=== PATIENT | female | born 1935 | race Caucasian/White ===

== ENCOUNTER → 2017-08-24 | Outpatient (CLI) | payer MEDICARE, BC ==
--- NOTE | 2017-08-28 10:14 | MM ---
Reason for exam: screening (asymptomatic). History: Patient is postmenopausal. Cyst aspiration of the left breast, 1996. Taking estrogen. Physical Findings: A clinical breast exam by your physician is recommended on an annual basis and results should be correlated with mammographic findings. MG Screening Mammo w CAD Bilateral CC and MLO view(s) were taken. The breast tissue is heterogeneously dense. This may lower the sensitivity of mammography. There is no discrete abnormality. No significant changes when compared with prior studies. ASSESSMENT: Negative, BI-RAD 1 RECOMMENDATION: Routine screening mammogram of both breasts in 1 year.
== END | disposition home or self-care (01) ==
LOC: RADMAMWWP 12:52
PROVIDERS: ATTEND Family Medicine
DX: Z12.31 Encounter for screening mammogram for malignant neoplasm of breast (principal)

== ENCOUNTER → 2018-09-06 | Outpatient (CLI) | payer MEDICARE, BC ==
--- NOTE | 2018-09-10 08:47 | MM ---
Reason for exam: screening (asymptomatic). Last mammogram was performed 1 year ago. History: Patient is postmenopausal. Cyst aspiration of the left breast, 1996. Taking estrogen. Physical Findings: A clinical breast exam by your physician is recommended on an annual basis and results should be correlated with mammographic findings. MG Screening Mammo w CAD Bilateral CC and MLO view(s) were taken. Prior study comparison: August 24, 2017, bilateral MG screening mammo w CAD. The breast tissue is heterogeneously dense. This may lower the sensitivity of mammography. No suspicious abnormality. No significant changes when compared with prior studies. ASSESSMENT: Negative, BI-RAD 1 RECOMMENDATION: Routine screening mammogram of both breasts in 1 year.
== END | disposition home or self-care (01) ==
LOC: RADMAMWWP 10:26
PROVIDERS: ATTEND Family Medicine
DX: Z12.31 Encounter for screening mammogram for malignant neoplasm of breast (principal)
CPT/HCPCS: 77067

== ENCOUNTER → 2019-09-26 | Outpatient (CLI) | payer MEDICARE, BC ==
--- NOTE | 2019-09-30 10:38 | MM ---
Reason for exam: screening (asymptomatic). Last mammogram was performed 1 year and 1 month ago. History: Patient is postmenopausal. Cyst aspiration of the left breast, 1996. Taking estrogen. Physical Findings: A clinical breast exam by your physician is recommended on an annual basis and results should be correlated with mammographic findings. MG Screening Mammo w CAD Bilateral CC and MLO view(s) were taken. Prior study comparison: September 06, 2018, bilateral MG screening mammo w CAD. August 24, 2017, bilateral MG screening mammo w CAD. The breast tissue is heterogeneously dense. This may lower the sensitivity of mammography. Medial asymmetric density left CC view more defined. ASSESSMENT: Incomplete: need additional imaging evaluation, BI-RAD 0 RECOMMENDATION: Special view mammogram of the left breast. (3D) If lesion persists on supplemental views, image directed ultrasound is recommended. [facility] will attempt to contact patient to return for supplemental views and ultrasound if indicated.
== END | disposition home or self-care (01) ==
LOC: RADMAMWWP 14:27
PROVIDERS: ATTEND Family Medicine
DX: Z12.31 Encounter for screening mammogram for malignant neoplasm of breast (principal)
CPT/HCPCS: 77067

== ENCOUNTER → 2019-10-15 | Outpatient (CLI) | payer MEDICARE, BC ==
--- NOTE | 2019-10-15 10:29 | MM ---
Reason for exam: additional evaluation requested from abnormal screening. Last mammogram was performed 1 month ago. History: Patient is postmenopausal. Cyst aspiration of the left breast, 1996. Took estrogen for 20 years. Physical Findings: Nurse did not find any significant physical abnormalities on exam. MG 3D Work Up W/Cad LT Spot compression CC, ML, and CCRM view(s) were taken of the left breast. Prior study comparison: September 26, 2019, bilateral MG screening mammo w CAD. September 06, 2018, bilateral MG screening mammo w CAD. Area of concern is less conspicuous. Ultrasound is recommended. These results were verbally communicated with the patient and result sheet given to the patient on 10/15/19. ASSESSMENT: Incomplete: need additional imaging evaluation, BI-RAD 0 RECOMMENDATION: Ultrasound of the left breast.
--- NOTE | 2019-10-15 10:30 | USB ---
Reason for exam: additional evaluation requested from abnormal screening. History: Patient is postmenopausal. Cyst aspiration of the left breast, 1996. Took estrogen for 20 years. US Breast Workup Limited LT Left limited breast ultrasound including focal area of concern, retroareolar and axilla demonstrates a 0.4 x 0.4 x 0.3cm lesion too small to characterize at 12 o'clock. These results were verbally communicated with the patient and result sheet given to the patient on 10/15/19. ASSESSMENT: Probably benign, BI-RAD 3 RECOMMENDATION: Follow-up diagnostic mammogram and ultrasound of the left breast in 6 months.
== END | disposition home or self-care (01) ==
LOC: RADMAMWWP 08:41
PROVIDERS: ATTEND Family Medicine
DX: R92.8 Other abnormal and inconclusive findings on diagnostic imaging of breast (principal)
CPT/HCPCS: 77065; 76642; G0279; 77061

== ENCOUNTER → 2020-11-04 | Outpatient (CLI) | payer MEDICARE ==
--- NOTE | 2020-11-04 13:44 | MM ---
Reason for exam: screening (asymptomatic). Last mammogram was performed 4 months ago. History: Patient is postmenopausal and history of other cancer. Cyst aspiration of the left breast, 1996. Took estrogen for 20 years. Physical Findings: A clinical breast exam by your physician is recommended on an annual basis and results should be correlated with mammographic findings. MG 3D Screening Mammo W/Cad Bilateral CC and MLO view(s) were taken. Prior study comparison: July 16, 2020, left breast MG 3d diag mammo w/cad LT. October 15, 2019, left breast MG 3d work up w/cad LT. The breast tissue is heterogeneously dense. This may lower the sensitivity of mammography. There are benign appearing vascular calcifications bilaterally. There is no discrete abnormality. ASSESSMENT: Incomplete: need additional imaging evaluation, BI-RAD 0 RECOMMENDATION: Ultrasound of the left breast. (subareolar, patient symptoms of new inverted nipple) [facility] will attempt to contact patient to return for ultrasound.
== END | disposition home or self-care (01) ==
LOC: RADMAMWWP 08:27
PROVIDERS: ATTEND Family Medicine
DX: Z12.31 Encounter for screening mammogram for malignant neoplasm of breast (principal)
CPT/HCPCS: 77063; 77067

== ENCOUNTER → 2020-11-09 | Outpatient (CLI) | payer MEDICARE ==
--- NOTE | 2020-11-09 10:38 | USB ---
Reason for exam: additional evaluation requested from abnormal screening. History: Patient is postmenopausal and history of other cancer. Cyst aspiration of the left breast, 1996. Took estrogen for 20 years. Physical Findings: Nurse did not find any significant physical abnormalities on exam. US Breast Workup Limited LT Left limited breast ultrasound including focal area of concern, retroareolar and axilla demonstrates no cystic or solid lesion seen. These results were verbally communicated with the patient and result sheet given to the patient on 11/09/20. ASSESSMENT: Benign, BI-RAD 2 RECOMMENDATION: Return to routine screening mammogram schedule for both breasts. Manage patient on a clinical basis.
== END | disposition home or self-care (01) ==
LOC: RADUSWWP 09:18
PROVIDERS: ATTEND Family Medicine
DX: R92.8 Other abnormal and inconclusive findings on diagnostic imaging of breast (principal)

== ENCOUNTER 2021-05-18 11:37 | Inpatient (IN) | payer MEDICARE ==
--- NOTE | 2021-05-18 12:25 | XR ---
EXAMINATION TYPE: XR chest 2V DATE OF EXAM: 05/18/2021 COMPARISON: NONE HISTORY: Shortness of breath TECHNIQUE: Frontal and lateral views of the chest are obtained. FINDINGS: Scattered senescent parenchymal changes noted. Hyperinflation compatible with COPD. Strandy left lower lobe density may reflect atelectasis or developing infiltrate. Correlate clinicall y. Heart size is stable. Mediastinal structures are stable and grossly unremarkable. No evidence for hilar prominence. Degenerative changes dorsal spine. IMPRESSION: 1. Strandy left lower lobe density may reflect atelectasis or developing infiltrate. Correlate clinic ally.
[2021-05-18 12:27] LABS: Basophils % (A) 0 %; Eosinophils % (A) 8 %; HGB 12.7 gm/dL (11.4-16.0); Lymphocytes % (A) 7 %; MCH 29.3 pg (25.0-35.0); MCHC 33.3 g/dL (31.0-37.0); MCV 87.9 fL (80.0-100.0); Monocytes # (A) 0.6 k/uL (0-1.0); Monocytes % (A) 4 %; Neutrophils # (A) 10.6 k/uL (1.3-7.7); Neutrophils % (A) 79 %; Platelet Count 285 k/uL (150-450); RBC 4.32 m/uL (3.80-5.40); WBC 13.3 k/uL (3.8-10.6)
[2021-05-18 12:35] LABS: INR 0.9 (<1.2); Partial Thromboplastin Time 22.6 sec (22.0-30.0); Prothrombin Time 10.1 sec (9.0-12.0)
[2021-05-18 12:37] LABS: Albumin 3.9 g/dL (3.5-5.0); Calcium 9.9 mg/dL (8.4-10.2); Magnesium 2.1 mg/dL (1.6-2.3); Potassium 4.5 mmol/L (3.5-5.1); Total Bilirubin 0.5 mg/dL (0.2-1.3); Total Protein 6.4 g/dL (6.3-8.2)
[2021-05-18] MEDS ORDERED: SODIUM CHLORIDE 0.9% 500 ML 500 ML IV ONE (12:44)
--- NOTE | 2021-05-18 12:48 | ED ---
General Adult HPI - General Chief complaint: Arrhythmia/Palpitations Stated complaint: Arrhythmia Time Seen by Provider: 05/18/21 11:49 Source: patient, EMS, RN notes reviewed, old records reviewed Mode of arrival: EMS - History of Present Illness Initial comments: 86-year-old female presenting with palpitations, new onset atrial fibrillation. She was found to be in A. fib at her primary care office and sent to the emergency department for evaluation. She has had some exertional dyspnea and fatigue over the past several weeks. She's had some nausea without significant vomiting. No central chest pain. No fever. No diarrhea. - Related Data Home Medications Medication Instructions Recorded Confirmed Atenolol [Tenormin] 50 mg PO DAILY 05/18/21 05/18/21 Irbesartan [Avapro] 150 mg PO DAILY 05/18/21 05/18/21 Levothyroxine Sodium [Synthroid] 50 mcg PO DAILY 05/18/21 05/18/21 Raloxifene [Evista] 60 mg PO DAILY 05/18/21 05/18/21 Allergies Allergy/AdvReac Type Severity Reaction Status Date / Time Iodinated Contrast Media Allergy Unknown Verified 10/15/19 09:29 Review of Systems ROS Statement: Those systems with pertinent positive or pertinent negative responses have been documented in the HPI. ROS Other: All systems not noted in ROS Statement are negative. Past Medical History Past Medical History: Hypertension History of Any Multi-Drug Resistant Organisms: None Reported Past Surgical History: Cholecystectomy Additional Past Surgical History / Comment(s): Cholecystectomy 1990 Smoking Status: Never smoker Past Alcohol Use History: None Reported Past Drug Use History: None Reported General Exam General appearance: alert, in no apparent distress Head exam: Present: atraumatic, normocephalic Eye exam: Present: normal appearance, PERRL ENT exam: Present: normal exam Neck exam: Present: normal inspection. Absent: tenderness, meningismus Respiratory exam: Present: normal lung sounds bilaterally. Absent: respiratory distress, wheezes Cardiovascular Exam: Present: tachycardia, irregular rhythm GI/Abdominal exam: Present: soft. Absent: distended, tenderness, guarding Extremities exam: Present: normal inspection, normal capillary refill. Absent: pedal edema, calf tenderness Neurological exam: Present: alert, oriented X3, CN II-XII intact. Absent: motor sensory deficit Psychiatric exam: Present: normal affect, normal mood Skin exam: Present: warm, dry, intact. Absent: cyanosis, diaphoretic Course Vital Signs 05/18/21 05/18/21 05/18/21 11:39 11:56 13:06 Temperature 98.7 F 102 F H Pulse Rate 93 Respiratory 18 Rate Blood Pressure 124/87 O2 Sat by Pulse 100 Oximetry EKG Findings - EKG Comments: EKG Findings:: EKG: Atrial flutter with variable AV block, rate of 93, QRS duration 84, QTC 450, no ST segment elevation. Medical Decision Making - Medical Decision Making 86-year-old female presents with palpitations. Patient is noted to be in atrial flutter with variable AV block, rate typically around 70 bpm. While in the emergency department she does convert into her rapid narrow complex rhythm which was not able to be captured on EKG was suggestive of any trauma fluttering with 2-1 conduction versus SVT. She was started on Cardizem. She will be admitted with cardiology on consultation. Case discussed with Dr. Montalvo who will admit. - Lab Data Result diagrams: 05/18/21 11:58 05/18/21 11:58 Lab Results 05/18/21 05/18/21 05/18/21 Range/Units 11:58 11:58 11:58 WBC 13.3 H (3.8-10.6) k/uL RBC 4.32 (3.80-5.40) m/uL Hgb 12.7 (11.4-16.0) gm/dL Hct 38.0 (34.0-46.0) % MCV 87.9 (80.0-100.0) fL MCH 29.3 (25.0-35.0) pg MCHC 33.3 (31.0-37.0) g/dL RDW 13.0 (11.5-15.5) % Plt Count 285 (150-450) k/uL MPV 7.0 Neutrophils % 79 % Lymphocytes % 7 % Monocytes % 4 % Eosinophils % 8 % Basophils % 0 % Neutrophils # 10.6 H (1.3-7.7) k/uL Lymphocytes # 1.0 (1.0-4.8) k/uL Monocytes # 0.6 (0-1.0) k/uL Eosinophils # 1.0 H (0-0.7) k/uL Basophils # 0.0 (0-0.2) k/uL PT 10.1 (9.0-12.0) sec INR 0.9 (<1.2) APTT 22.6 (22.0-30.0) sec Sodium 133 L (137-145) mmol/L Potassium 4.5 (3.5-5.1) mmol/L Chloride 98 (98-107) mmol/L Carbon Dioxide 27 (22-30) mmol/L Anion Gap 8 mmol/L BUN 28 H (7-17) mg/dL Creatinine 1.08 H (0.52-1.04) mg/dL Est GFR (CKD-EPI)AfAm 54 (>60 ml/min/1.73 sqM) Est GFR (CKD-EPI)NonAf 47 (>60 ml/min/1.73 sqM) Glucose 138 H (74-99) mg/dL Calcium 9.9 (8.4-10.2) mg/dL Magnesium 2.1 (1.6-2.3) mg/dL Total Bilirubin 0.5 (0.2-1.3) mg/dL AST 27 (14-36) U/L ALT 22 (4-34) U/L Alkaline Phosphatase 82 (38-126) U/L Troponin I (0.000-0.034) ng/mL Total Protein 6.4 (6.3-8.2) g/dL Albumin 3.9 (3.5-5.0) g/dL 05/18/21 Range/Units 11:58 WBC (3.8-10.6) k/uL RBC (3.80-5.40) m/uL Hgb (11.4-16.0) gm/dL Hct (34.0-46.0) % MCV (80.0-100.0) fL MCH (25.0-35.0) pg MCHC (31.0-37.0) g/dL RDW (11.5-15.5) % Plt Count (150-450) k/uL MPV Neutrophils % % Lymphocytes % % Monocytes % % Eosinophils % % Basophils % % Neutrophils # (1.3-7.7) k/uL Lymphocytes # (1.0-4.8) k/uL Monocytes # (0-1.0) k/uL Eosinophils # (0-0.7) k/uL Basophils # (0-0.2) k/uL PT (9.0-12.0) sec INR (<1.2) APTT (22.0-30.0) sec Sodium (137-145) mmol/L Potassium (3.5-5.1) mmol/L Chloride (98-107) mmol/L Carbon Dioxide (22-30) mmol/L Anion Gap mmol/L BUN (7-17) mg/dL Creatinine (0.52-1.04) mg/dL Est GFR (CKD-EPI)AfAm (>60 ml/min/1.73 sqM) Est GFR (CKD-EPI)NonAf (>60 ml/min/1.73 sqM) Glucose (74-99) mg/dL Calcium (8.4-10.2) mg/dL Magnesium (1.6-2.3) mg/dL Total Bilirubin (0.2-1.3) mg/dL AST (14-36) U/L ALT (4-34) U/L Alkaline Phosphatase (38-126) U/L Troponin I <0.012 (0.000-0.034) ng/mL Total Protein (6.3-8.2) g/dL Albumin (3.5-5.0) g/dL Disposition Clinical Impression: Atrial flutter with rapid ventricular response Disposition: ADMITTED IP TO THIS HOSP Condition: Stable Is patient prescribed a controlled substance at d/c from ED?: No Referrals: Les Lombardo MD [Primary Care Provider] - 1-2 days Decision to Admit Reason: Admit from EC Decision Date: 05/18/21 Decision Time: 14:19
[2021-05-18] MEDS: SODIUM CHLORIDE 0.9% 1,000 ML IV SCH (13:13)
[2021-05-18] MEDS ORDERED: DILTIAZEM 125 MG in SODIUM CHLORIDE 0.9% 100 ML IV SCH (13:30)
[2021-05-18] MEDS ORDERED: HEPARIN SODIUM 1,000 UN/ML (10ML VL) IV PRN (14:02)
[2021-05-18] MEDS ORDERED: HEPARIN SODIUM 1,000 UN/ML (10ML VL) IV ONE (14:02)
[2021-05-18] MEDS ORDERED: NALOXONE 0.4 MG/ML 1 ML VIAL IV PRN (14:03)
[2021-05-18] MEDS ORDERED: ACETAMINOPHEN TAB 325 MG TAB PO PRN (14:03)
[2021-05-18] MEDS ORDERED: HEPARIN SOD,PORK IN 0.45% NACL 25,000 UNIT in 0.45% NACL 1 250ML.BAG IV SCH (14:15)
[2021-05-18] MEDS ORDERED: guaiFENesin SYRUP 100MG/5ML 200 MG/10 ML CUP PO PRN (16:24)
--- NOTE | 2021-05-18 16:35 | P.HPIM ---
History of Present Illness H&P Date: 05/18/21 Chief Complaint: Cough This is a 86-year-old female with past medical history significant for hypertension and hyperlipidemia that presented as directed by her PCP for abnormal heart rhythm. Patient said that she has been having a dry cough for the past few days and went to her PCP today for evaluation. She denies any fevers or chills. Cough is dry and nonproductive. No shortness of breath. Patient was evaluated with PCP and was noted to be tachycardic with a regular heart rhythm. She was sent to the ER for further evaluation of A. fib with RVR. Patient denies any history of arrhythmia or any cardiac history for that matter. She is fairly active and does not have any difficulty usually. Chest x-ray in the ER showed a left lower lobe infiltrate concerning for pneumonia. Patient is not hypoxic. She was started on IV Cardizem drip in the ER and her heart rate was in the 70s and 80s at the time of my evaluation. Review of Systems Review of system: 14 points review of systems were obtained and were negative except to what were mentioned in the HPI. Past Medical History Past Medical History: Hypertension History of Any Multi-Drug Resistant Organisms: None Reported Past Surgical History: Cholecystectomy Additional Past Surgical History / Comment(s): Cholecystectomy 1990 Smoking Status: Never smoker Past Alcohol Use History: None Reported Past Drug Use History: None Reported Medications and Allergies Home Medications Medication Instructions Recorded Confirmed Type Atenolol [Tenormin] 50 mg PO DAILY 05/18/21 05/18/21 History Irbesartan [Avapro] 150 mg PO DAILY 05/18/21 05/18/21 History Levothyroxine Sodium [Synthroid] 50 mcg PO DAILY 05/18/21 05/18/21 History Raloxifene [Evista] 60 mg PO DAILY 05/18/21 05/18/21 History Allergies Allergy/AdvReac Type Severity Reaction Status Date / Time Iodinated Contrast Media Allergy Unknown Verified 10/15/19 09:29 Physical Exam Vitals: Vital Signs Temp Pulse Resp BP Pulse Ox 05/18/21 14:08 93 18 101/86 96 05/18/21 13:06 102 F H 05/18/21 11:56 93 05/18/21 11:39 98.7 F 18 124/87 100 Intake and Output 05/18/21 05/18/21 05/18/21 06:59 14:59 22:59 Other: Weight 57.153 kg General: The patient is awake and alert, in no distress Eye: there is normal conjunctiva bilaterally. Neck: The neck is supple, there is no JVD. Cardiovascular: Irregular. Normal S1-S2, no S3-S4, no murmurs. Respiratory: Lungs clear to auscultation bilaterally Gastrointestinal: Abdomen is soft, nontender Musculoskeletal: There is no pedal edema. Neurological:. Speech is normal. Skin: Skin is warm and dry Results CBC & Chem 7: 05/18/21 11:58 05/18/21 11:58 Labs: Abnormal Lab Results - Last 24 Hours (Table) 05/18/21 05/18/21 Range/Units 11:58 11:58 WBC 13.3 H (3.8-10.6) k/uL Neutrophils # 10.6 H (1.3-7.7) k/uL Eosinophils # 1.0 H (0-0.7) k/uL Sodium 133 L (137-145) mmol/L BUN 28 H (7-17) mg/dL Creatinine 1.08 H (0.52-1.04) mg/dL Glucose 138 H (74-99) mg/dL Assessment and Plan Assessment: 1. New onset atrial fibrillation with rapid ventricular response, started on IV Cardizem and IV heparin drip in the ER. I would discontinue home dose of atenolol and start metoprolol 25 mg twice daily. Wean off Cardizem drip per protocol. Cardiology consulted for further evaluation. Thyroid function tests within normal range. I would order echocardiogram of the heart. 2. Suspected left lower lobe pneumonia: I'll start patient on ceftriaxone and azithromycin. Obtain pro-calcitonin. Incentive spirometer at bedside. 3. Sepsis without septic shock: I would order a stat lactic acid. Continue antibiotic. IV fluid hydration with normal saline at 75 mL per hour. 4. Chronic medical problems: Hypertension, hyperlipidemia 5. CODE STATUS: Patient is full code. Discussed with her in the ER with her and daughter at bedside
[2021-05-18] MEDS: AZITHROMYCIN 500 MG TAB PO SCH (17:40)
[2021-05-18] MEDS: METOPROLOL TARTRATE 25 MG TAB PO SCH (21:11)
[2021-05-18 22:32] LABS: Amorphous Sediment,Urine Rare /hpf; Appearance,Urine Clear (Clear); Bacteria,Urine Rare /hpf; Bilirubin,Urine Negative (Negative); Blood,Urine Negative (Negative); Color,Urine Light Yellow; Glucose,Urine (UA) Negative (Negative); Ketones,Urine Negative (Negative); Leukocyte Esterase,Urine Moderate (Negative); Nitrite,Urine Negative (Negative); PH, Urine 5.5 (5.0-8.0); Protein,Urine Negative (Negative); RBC,Urine <1 /hpf (0-5); Specific Gravity,Urine 1.006 (1.001-1.035); Squamous Epithelial Cell,Urine 1 /hpf (0-4); Urobilinogen,Urine <2.0 mg/dL (<2.0); WBC,Urine 9 /hpf (0-5)
[2021-05-19] MEDS: LEVOTHYROXINE 50 MCG TAB PO SCH (06:17)
[2021-05-19] MEDS: LOSARTAN 50 MG TAB PO SCH (06:17)
[2021-05-19] MEDS: AZITHROMYCIN 500 MG TAB PO SCH (06:17)
[2021-05-19] MEDS: METOPROLOL TARTRATE 25 MG TAB PO SCH (06:17)
[2021-05-19] MEDS: SODIUM CHLORIDE 0.9% 1,000 ML IV SCH ×2 (06:18→21:15)
[2021-05-19 08:14] LABS: Basophils # (A) 0.1 k/uL (0-0.2); Basophils % (A) 1 %; Eosinophils # (A) 1.3 k/uL (0-0.7); Eosinophils % (A) 11 %; HCT 37.9 % (34.0-46.0); HGB 12.5 gm/dL (11.4-16.0); Lymphocytes # (A) 0.9 k/uL (1.0-4.8); Lymphocytes % (A) 8 %; MCH 30.1 pg (25.0-35.0); MCHC 33.1 g/dL (31.0-37.0); Monocytes # (A) 0.4 k/uL (0-1.0); Monocytes % (A) 3 %; Neutrophils # (A) 9.3 k/uL (1.3-7.7); Neutrophils % (A) 76 %; Platelet Count 248 k/uL (150-450); RBC 4.16 m/uL (3.80-5.40); RDW 13.3 % (11.5-15.5); WBC 12.2 k/uL (3.8-10.6)
[2021-05-19 08:25] LABS: Partial Thromboplastin Time 45.9 sec (22.0-30.0); Prothrombin Time 10.6 sec (9.0-12.0)
[2021-05-19] MEDS ORDERED: APIXABAN 5 MG TAB PO SCH (09:30)
[2021-05-19] MEDS ORDERED: RIVAROXABAN 20 MG TAB PO STA (11:05)
--- NOTE | 2021-05-19 11:51 | P.CRDCN ---
History of Present Illness History of present illness: HISTORY OF PRESENTING ILLNESS This is a pleasant 86-year-old male past medical history significant for hypertension and hypothyroidism. 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 We have been asked to see in consultation for arrhythmia. She has been following with her PCP secondary to knee pain. She was given steroid injection on 2 separate occasions and then started developing a cough. She went back to her doctor who did an EKG and sent her to the hospital for further evaluation. On arrival her EKG revealed atrial fibrillation with controlled ventricular response. Chest x- ray revealed an infiltrate in the left lower lobe. She has been initiated on IV heparin and IV antibiotics. She has converted back to SR. Laboratory data reviewed, WBC 12.2, hemoglobin 12.5, platelets 248, cardiac enzymes negative 3, pro-calcitonin 0.08, TSH 3.38, magnesium 2.1, potassium 4.5 and creatinine 1.08. Current daily cardiac medications include Eliquis 5 mg twice a day, atenolol 50 mg daily and irbesartan 150 mg daily. REVIEW OF SYSTEMS At the time of my exam: CONSTITUTIONAL: Denies fever or chills. CARDIOVASCULAR: Denies chest pain, shortness of breath, orthopnea, PND or palpitations. RESPIRATORY: Denies cough. GASTROINTESTINAL: Denies abdominal pain, diarrhea, constipation, nausea or vomiting. MUSCULOSKELETAL: Denies myalgias. NEUROLOGIC: Denies numbness, tingling, headacbe or weakness. ENDOCRINE: Denies fatigue, weight change, polydipsia or polyurina. GENITOURINARY: Denies burning, hematuria or urgency with micturation. HEMATOLOGIC: Denies history of anemia or bleeding. PHYSICAL EXAMINATION Blood pressure 113/59 heart rate 76 afebrile and maintaining oxygen saturation on room air. CONSTITUTIONAL: No apparent distress. HEENT: Head is normocephalic. Pupils are equal, round. Sclerae anicteric. Mucous membranes of the mouth are moist. No JVD. No carotid bruit. CHEST EXAMINATION: Lungs are clear to auscultation. No chest wall tenderness is noted on palpation or with deep breathing. HEART EXAMINATION: Regular rate and rhythm. S1, S2 heard. No murmurs, gallops or rub. ABDOMEN: Soft, nontender. Positive bowel sounds. EXTREMITIES: 2+ peripheral pulses, no lower extremity edema and no calf tenderness. NEUROLOGIC EXAMINATION: Patient is awake, alert and oriented x3. ASSESSMENT New onset paroxysmal atrial fibrillation with controlled ventricular response, converted to SR. Pneumonia Leuckoycytosis Acute kidney injury Hypertension PLAN Pt was previously on atenolol which was working to keep her rates under control. No evidence of rapid rates. Continue atenolol as previously ordered and discontinue lopressor. Initiate prison anticoagulation, eliquis 5 mg BID. Cost will be checked with case management prior to discharge. Echo has been ordered and will be reviewed. Stable for discharge from a cardiac perspective. Follow up with Dr. Avalos upon discharge. Thank you kindly for this consultation. Nurse Practitioner note has been reviewed, I agree with a documented findings and plan of care. Patient was seen and examined. Past Medical History Past Medical History: Hypertension History of Any Multi-Drug Resistant Organisms: None Reported Past Surgical History: Cholecystectomy Additional Past Surgical History / Comment(s): Cholecystectomy 1990 Past Anesthesia/Blood Transfusion Reactions: No Reported Reaction Past Psychological History: No Psychological Hx Reported Smoking Status: Never smoker Past Alcohol Use History: None Reported Past Drug Use History: None Reported Medications and Allergies Home Medications Medication Instructions Recorded Confirmed Type Atenolol [Tenormin] 50 mg PO DAILY 05/18/21 05/18/21 History Irbesartan [Avapro] 150 mg PO DAILY 05/18/21 05/18/21 History Levothyroxine Sodium [Synthroid] 50 mcg PO DAILY 05/18/21 05/18/21 History Raloxifene [Evista] 60 mg PO DAILY 05/18/21 05/18/21 History Apixaban [Eliquis] 5 mg PO BID #60 tab 05/19/21 Rx Allergies Allergy/AdvReac Type Severity Reaction Status Date / Time Iodinated Contrast Media Allergy Unknown Verified 10/15/19 09:29 Physical Exam Vitals: Vital Signs Temp Pulse Pulse Resp BP BP Pulse Ox 05/19/21 04:00 97.6 F 79 16 131/68 95 05/19/21 02:00 16 05/19/21 00:00 97.6 F 74 16 110/65 97 05/18/21 20:15 97.6 F 75 16 105/64 96 05/18/21 16:45 98 18 102/53 96 05/18/21 14:08 93 18 101/86 96 05/18/21 11:56 93 05/18/21 11:39 98.7 F 18 124/87 100 Intake and Output 05/18/21 05/19/21 05/19/21 22:59 06:59 14:59 Intake Total 403.5 610 Output Total 1200 Balance 403.5 -590 Intake: IV 135 610 Invasive Line 2 10 10 Sodium Chloride 0.9% 1, 125 600 000 ml @ 75 mls/hr IV . [id number] [facility] Rx#:[id number] Intake, IV Titration 28.5 Amount Diltiazem 125 mg In 28.5 Sodium Chloride 0.9% 100 ml @ 5 MG/HR 5 mls/hr IV .Q24H [facility] Rx#:[id number] Oral 240 Output: Urine 1200 Other: Weight 57.153 kg 58.9 kg Results 05/19/21 07:54 05/18/21 11:58 Cardiac Enzymes 05/18/21 05/18/21 05/18/21 Range/Units 11:58 11:58 15:06 AST 27 (14-36) U/L Troponin I <0.012 <0.012 (0.000-0.034) ng/mL 05/18/21 Range/Units 20:16 AST (14-36) U/L Troponin I <0.012 (0.000-0.034) ng/mL Coagulation 05/18/21 05/18/21 Range/Units 11:58 20:16 PT 10.1 (9.0-12.0) sec APTT 22.6 52.6 H (22.0-30.0) sec CBC 05/18/21 Range/Units 11:58 WBC 13.3 H (3.8-10.6) k/uL RBC 4.32 (3.80-5.40) m/uL Hgb 12.7 (11.4-16.0) gm/dL Hct 38.0 (34.0-46.0) % Plt Count 285 (150-450) k/uL Comprehensive Metabolic Panel 05/18/21 Range/Units 11:58 Sodium 133 L (137-145) mmol/L Potassium 4.5 (3.5-5.1) mmol/L Chloride 98 (98-107) mmol/L Carbon Dioxide 27 (22-30) mmol/L BUN 28 H (7-17) mg/dL Creatinine 1.08 H (0.52-1.04) mg/dL Glucose 138 H (74-99) mg/dL Calcium 9.9 (8.4-10.2) mg/dL AST 27 (14-36) U/L ALT 22 (4-34) U/L Alkaline Phosphatase 82 (38-126) U/L Total Protein 6.4 (6.3-8.2) g/dL Albumin 3.9 (3.5-5.0) g/dL Current Medications Generic Name Dose Route Start Last Admin Trade Name Freq PRN Reason Stop Dose Admin Acetaminophen 650 mg 05/18/21 14:03 Acetaminophen Tab 325 Mg Tab PO Q6HR PRN Mild Pain or Fever > 100.5 Azithromycin 500 mg 05/18/21 16:30 05/19/21 06:17 Azithromycin 500 Mg Tab PO 500 mg DAILY [facility] Administration Guaifenesin 200 mg 05/18/21 16:24 Guaifenesin Syrup 100mg/5ml 200 Mg/10 Ml Cup PO Q6H PRN Cough Heparin Sodium (Porcine) 0 unit 05/18/21 14:02 Heparin Sodium 1,000 Un/Ml (10ml Vl) IV PER PROTOCOL PRN Low PTT Protocol Sodium Chloride 1,000 mls @ 75 mls/hr 05/18/21 13:00 05/19/21 06:18 Saline 0.9% IV 75 mls/hr .[id number] [facility]UB Administration Heparin Sodium/Sodium Chloride 250 mls @ 6.858 mls/hr 05/18/21 14:15 05/18/21 14:43 25,000 unit/ Sodium Chloride IV 12 units/kg/hr .Q24H [facility] 6.858 mls/hr Administration Protocol 12 UNITS/KG/HR Ceftriaxone Sodium 1 gm/ 50 mls @ 100 mls/hr 05/18/21 16:30 05/19/21 06:17 Sodium Chloride IVPB 100 mls/hr Q24HR [facility] Administration Levothyroxine Sodium 50 mcg 05/19/21 06:30 05/19/21 06:17 Levothyroxine 50 Mcg Tab PO 50 mcg 0630 [facility] Administration Losartan Potassium 50 mg 05/19/21 09:00 05/19/21 06:17 Losartan 50 Mg Tab PO 50 mg DAILY JAKUB Administration Metoprolol Tartrate 25 mg 05/18/21 21:00 05/19/21 06:17 Metoprolol Tartrate 25 Mg Tab PO 25 mg BID J[facility]UB Administration Naloxone HCl 0.2 mg 05/18/21 14:03 Naloxone 0.4 Mg/Ml 1 Ml Vial IV Q2M PRN Opioid Reversal Intake and Output 05/18/21 05/19/21 05/19/21 22:59 06:59 14:59 Intake Total 403.5 610 Output Total 1200 Balance 403.5 -590 Intake: IV 135 610 Invasive Line 2 10 10 Sodium Chloride 0.9% 1, 125 600 000 ml @ 75 mls/hr IV . [id number] [facility] Rx#:[id number] Intake, IV Titration 28.5 Amount Diltiazem 125 mg In 28.5 Sodium Chloride 0.9% 100 ml @ 5 MG/HR 5 mls/hr IV .Q24H [facility] Rx#:[id number] Oral 240 Output: Urine 1200 Other: Weight 57.153 kg 58.9 kg 05/18/21 11:58 05/18/21 11:58
--- NOTE | 2021-05-19 17:49 | ECHOF ---
Referral Reason:Afib MEASUREMENTS -------- HEIGHT: 152.4 cm WEIGHT: 58.5 kg BP: 131/68 RVIDd: 3.0 cm (< 3.3) IVSd: 0.8 cm (0.6 - 1.1) LVIDd: 4.0 cm (3.9 - 5.3) LVPWd: 1.0 cm (0.6 - 1.1) IVSs: 1.0 cm LVIDs: 3.2 cm LVPWs: 1.0 cm LA Diam: 4.1 cm (2.7 - 3.8) LAESV Index (A-L): 46.74 ml/m Ao Diam: 2.9 cm (2.0 - 3.7) AV Cusp: 1.5 cm (1.5 - 2.6) LA Diam: 4.7 cm (2.7 - 3.8) MV EXCURSION: 20.477 mm (> 18.000) MV EF SLOPE: 133 mm/s (70 - 150) EPSS: 0.3 cm MV E Moisés: 0.78 m/s MV DecT: 103 ms MV A Moisés: 0.48 m/s MV E/A Ratio: 1.62 RAP: 5.00 mmHg RVSP: 50.14 mmHg FINDINGS -------- Sinus rhythm. This was a technically good study. LV size, wall thickness and systolic function are normal, with an EF greater than 55%. The left ryan tricular size is normal. The right ventricle is normal in size. LA is severely dilated >40 ml/m2 The right atrial size is normal. The aortic valve is trileaflet, and appears structurally normal. No aortic stenosis or regurgitation. Snla-ob-rpdlzoav mitral regurgitation is present. Moderate tricuspid regurgitation present. There is moderate pulmonary hypertension. The right ryan tricular systolic pressure, as measured by Doppler, is 50.14mmHg. Trace/mild (physiologic) pulmonic regurgitation. There is no pericardial effusion. CONCLUSIONS -------- 1. LV size, wall thickness and systolic function are normal, with an EF greater than 55%. 2. The left ventricular size is normal. 3. The right ventricle is normal in size. 4. LA is severely dilated >40 ml/m2 5. The right atrial size is normal. 6. The aortic valve is trileaflet, and appears structurally normal. No aortic stenosis or regurgitati on. 7. Xyze-gi-laxydesk mitral regurgitation is present. 8. Moderate tricuspid regurgitation present. 9. There is moderate pulmonary hypertension. 10. The right ventricular systolic pressure, as measured by Doppler, is 50.14mmHg. 11. Trace/mild (physiologic) pulmonic regurgitation. 12. There is no pericardial effusion. [employer]: Araceli Gordon RDCS
--- NOTE | 2021-05-19 18:42 | P.PN ---
Subjective Progress Note Date: 05/19/21 Principal diagnosis: fatigue Patient is an 86-year-old female with past medical history of hypertension who presented from her primary care physician's office secondary to A. fib with RVR. She was started on a Cardizem drip in the ER and her heart rate improved significantly. She was also started on a heparin drip. She was admitted to the cardiac unit. She was seen by cardiology and converted to normal sinus rhythm. Her Cardizem drip was discontinued and she was started on a beta marissa. Chest x-ray showed left lower lobe developing infiltrate and she was diagnosed with pneumonia and started on Rocephin and Zithromax. Patient seen and examined at bedside. She has converted to normal sinus rhythm. She was taken off of her heparin drip and Cardizem drip. She denies any chest pain, shortness breath, nausea, vomiting, palpitations, lightheadedness, or dizziness. She is visibly upset as her is starting chemotherapy today she is anxious about her new diagnosis of A. fib. She does not want to take Eliquis as her had poor reaction to this the past but is willing to take Xarelto. General: non toxic, no distress, appears at stated age Derm: warm, dry Head: atraumatic, normocephalic, symmetric Eyes: EOMI, no lid lag, anicteric sclera Mouth: no lip lesion, mucus membranes moist Cardiovascular: S1S2 reg, no murmur, positive posterior tibial pulse bilateral, Lungs: Rhonchi left base, no rhonchi, no rales , no accessory muscle use Abdominal: soft, nontender to palpation, no guarding, no appreciable organomegaly Ext: no gross muscle atrophy, no edema, no contractures Neuro: CN II-XI grossly intact, no focal neuro deficits Psych: Alert, oriented, appropriate affect Newly discovered A. fib with rapid ventricular response -Atenolol -Continue with telemetry -Cardiology recommendations appreciated -Xarelto -Echocardiogram: Ejection fraction 55%, severely dilated left atria, moderate pulmonary hypertension Left lower lobe pneumonia with sepsis -Rocephin, Zithromax Hypertension, controlled -Continue with Cozaar -Follow blood pressures Objective - Vital Signs Vital signs: Vital Signs Temp 97.6 F 05/19/21 04:00 Pulse 77 05/19/21 16:00 Resp 16 05/19/21 16:00 BP 113/74 05/19/21 16:00 Pulse Ox 97 05/19/21 16:00 Intake & Output 05/18/21 05/19/21 05/19/21 18:59 06:59 18:59 Intake Total 268.5 745 1100 Output Total 1200 Balance 268.5 -455 1100 Weight 57.153 kg 58.9 kg Intake: IV 745 20 Invasive Line 2 20 20 Sodium Chloride 0.9% 1, 725 000 ml @ 75 mls/hr IV . [id number] [facility] Rx#:[id number] Intake, IV Titration 28.5 600 Amount Diltiazem 125 mg In 28.5 Sodium Chloride 0.9% 100 ml @ 5 MG/HR 5 mls/hr IV .Q24H [facility] Rx#:[id number] Sodium Chloride 0.9% 1, 600 000 ml @ 75 mls/hr IV . [id number] [facility] Rx#:[id number] Oral 240 480 Output: Urine 1200 Other: # Voids 2 # Bowel Movements 1 - Labs CBC & Chem 7: 05/19/21 07:54 05/18/21 11:58 Labs: Abnormal Lab Results - Last 24 Hours (Table) 05/18/21 05/18/21 05/19/21 Range/Units 20:16 22:02 07:54 WBC 12.2 H (3.8-10.6) k/uL Neutrophils # 9.3 H (1.3-7.7) k/uL Lymphocytes # 0.9 L (1.0-4.8) k/uL Eosinophils # 1.3 H (0-0.7) k/uL APTT 52.6 H (22.0-30.0) sec Ur Leukocyte Esterase Moderate H (Negative) Urine WBC 9 H (0-5) /hpf Amorphous Sediment Rare H (None) /hpf Urine Bacteria Rare H (None) /hpf 05/19/21 Range/Units 07:54 WBC (3.8-10.6) k/uL Neutrophils # (1.3-7.7) k/uL Lymphocytes # (1.0-4.8) k/uL Eosinophils # (0-0.7) k/uL APTT 45.9 H (22.0-30.0) sec Ur Leukocyte Esterase (Negative) Urine WBC (0-5) /hpf Amorphous Sediment (None) /hpf Urine Bacteria (None) /hpf
[2021-05-19 18:55] LABS: Chol/HDL Ratio 2.91; LDL Cholesterol,Calculated 87.4 mg/dL (0.0-131.0); VLDL Calculation 17.6 mg/dL (5.00-40.00)
[2021-05-20 04:04] VITALS: RESP 16
[2021-05-20] MEDS: SODIUM CHLORIDE 0.9% 1,000 ML IV SCH (05:42)
[2021-05-20] MEDS: LEVOTHYROXINE 50 MCG TAB PO SCH (05:42)
--- NOTE | 2021-05-20 07:36 | XR ---
EXAMINATION TYPE: XR chest 1V portable DATE OF EXAM: 05/20/2021 COMPARISON: 05/18/2021 HISTORY: Pneumonia TECHNIQUE: Single frontal view of the chest is obtained. FINDINGS: Heart size is mildly enlarged. Low lung volumes. Atherosclerotic aorta. Bibasilar airspace opacities including left retrocardiac airspace opacity suggestive of atelectasis or developing pneumo clarissa. Small left pleural effusion and probable tiny right pleural effusion. No pneumothorax. IMPRESSION: 1. Bibasilar airspace opacities including the left retrocardiac region may represent developing pneum onia versus atelectasis. Small left and tiny right pleural effusions. 2. Mild cardiomegaly.
[2021-05-20 07:45] LABS: Albumin 3.1 g/dL (3.5-5.0); Calcium 8.9 mg/dL (8.4-10.2); Potassium 4.5 mmol/L (3.5-5.1); Total Bilirubin 0.4 mg/dL (0.2-1.3); Total Protein 5.4 g/dL (6.3-8.2)
[2021-05-20] MEDS ORDERED: atenoloL 50 MG TAB PO SCH (09:00)
[2021-05-20] MEDS: AZITHROMYCIN 500 MG TAB PO SCH (09:11)
[2021-05-20] MEDS: LOSARTAN 50 MG TAB PO SCH (09:11)
[2021-05-20 09:17] VITALS: TEMP 98.1
--- NOTE | 2021-05-20 09:38 | P.PN ---
Subjective HISTORY OF PRESENTING ILLNESS This is a pleasant 86-year-old male past medical history significant for hypertension and hypothyroidism. 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 We have been asked to see in consultation for arrhythmia. She has been following with her PCP secondary to knee pain. She was given steroid injection on 2 separate occasions and then started developing a cough. She went back to her doctor who did an EKG and sent her to the hospital for further evaluation. On arrival her EKG revealed atrial fibrillation with controlled ventricular response. Chest x- ray revealed an infiltrate in the left lower lobe. She has been initiated on IV heparin and IV antibiotics. She has converted back to SR. Laboratory data reviewed, WBC 12.2, hemoglobin 12.5, platelets 248, cardiac enzymes negative 3, pro-calcitonin 0.08, TSH 3.38, magnesium 2.1, potassium 4.5 and creatinine 1.08. Current daily cardiac medications include Eliquis 5 mg twice a day, atenolol 50 mg daily and irbesartan 150 mg daily. 05/20/2021 Pt seen and examined sitting up in bed in no acute distress. She is maintaining SR. No chest pain, shortness of breath, dizziness or palpitations. Ongoing treatment for pneumonia. Echocardiogram obtained reveals preserved LV systolic function, mild-moderate MR, severely dilated LA and mild pulmonary hypertension. PHYSICAL EXAMINATION CONSTITUTIONAL: No apparent distress. HEENT: Head is normocephalic. Pupils are equal, round. Sclerae anicteric. Mucous membranes of the mouth are moist. No JVD. No carotid bruit. CHEST EXAMINATION: Lungs are clear to auscultation. No chest wall tenderness is noted on palpation or with deep breathing. HEART EXAMINATION: Regular rate and rhythm. S1, S2 heard. No murmurs, gallops or rub. EXTREMITIES: 2+ peripheral pulses, no lower extremity edema and no calf tenderness. ASSESSMENT New onset paroxysmal atrial fibrillation with controlled ventricular response, converted to SR. Pneumonia Leuckoycytosis Acute kidney injury Hypertension PLAN Pt prefers daily dosing, we will change to xarelto. Stable and maintaining SR. Follow up with Dr. Avalos upon discharge. Nurse Practitioner note has been reviewed, I agree with a documented findings and plan of care. Patient was seen and examined. Objective - Vital Signs Vital signs: Vital Signs Temp 98.1 F 05/20/21 08:00 Pulse 91 05/20/21 08:00 Resp 16 05/20/21 08:00 BP 122/61 05/20/21 08:00 Pulse Ox 94 L 05/20/21 08:00 Intake & Output 05/19/21 05/20/21 05/20/21 18:59 06:59 18:59 Intake Total 1100 240 Balance 1100 240 Weight 59.1 kg Intake: IV 20 Invasive Line 2 20 Intake, IV Titration 600 Amount Sodium Chloride 0.9% 1, 600 000 ml @ 75 mls/hr IV . [id number] [facility] Rx#:[id number] Oral 480 240 Other: Voiding Method Toilet # Voids 2 1 # Bowel Movements 1 - Labs CBC & Chem 7: 05/19/21 07:54 05/20/21 06:34 Labs: Abnormal Lab Results - Last 24 Hours (Table) 05/20/21 Range/Units 06:34 Sodium 136 L (137-145) mmol/L Chloride 108 H (98-107) mmol/L BUN 19 H (7-17) mg/dL Total Protein 5.4 L (6.3-8.2) g/dL Albumin 3.1 L (3.5-5.0) g/dL Microbiology - Last 24 Hours (Table) 05/18/21 16:53 Blood Culture - Preliminary Blood No Growth after 24 hours
[2021-05-20 13:51] VITALS: BP 122/72; PULSE 51
--- NOTE | 2021-05-20 14:15 | P.DS ---
Providers Date of admission: 05/18/21 14:03 Expected date of discharge: 05/20/21 Attending physician: Julia Montalvo MD Consults: 05/18/21 14:04 Consult Physician Routine Consulting Provider: Fredy Bryson Consult Reason/Comments: a-flutter Do you want consulting provider notified?: Yes Primary care physician: [facility] Hospital Course: Patient is an 86-year-old female with past medical history of hypertension who presented from her primary care physician's office secondary to A. fib with RVR. She was started on a Cardizem drip in the ER and her heart rate improved significantly. She was also started on a heparin drip. She was admitted to the cardiac unit. She was seen by cardiology and converted to normal sinus rhythm. Her Cardizem drip was discontinued and she was started on a beta marissa. Chest x-ray showed left lower lobe developing infiltrate and she was diagnosed with pneumonia and started on Rocephin and Zithromax. Patient seen and examined at bedside. She has converted to normal sinus rhythm. She was taken off of her heparin drip and Cardizem drip. She denies any chest pain, shortness breath, nausea, vomiting, palpitations, lightheadedness, or dizziness. She is visibly upset as her is starting chemotherapy today she is anxious about her new diagnosis of A. fib. She does not want to take Eliquis as her had poor reaction to this the past but is willing to take Xarelto. Newly discovered A. fib with rapid ventricular response Patient admitted with telemetry. Atenolol was continued. Cardiology was consulted. Patient started on xarelto. Echo demonstrated EF of 55%, severely dilated left atria, moderate pHTN. Pt spontaneously converted back to NSR. Pt to f/u with PCP and cardiology outpatient. Left lower lobe pneumonia with sepsis -Rocephin, Zithromax for 2 days while in house, switched to levofloxacin for additional 5 days as outpatient. Hypertension, controlled -Continued with Cozaar s Assessment: Gen: awake, alert HEENT: normocephalic, atraumatic, good hearing acuity, moist mucous membranes Resp: good air exchange, breathing comfortably with no accessory muscle use, CTAB CVS: good distal perfusion x 4, RRR, no murmurs GI: soft, NTTP, ND : no SPT, no CVAT, izquierdo catheter not present MSK: no pitting edema, no clubbing Neuro: non-focal, moving all extremities Psych: cooperative, euthymic mood Patient Condition at Discharge: Good Plan - Discharge Summary New Discharge Prescriptions: New Rivaroxaban [Xarelto] 20 mg PO W/SUPPER #90 tab levoFLOXacin 750 mg PO DAILY 5 Days #5 tab Continue Levothyroxine Sodium [Synthroid] 50 mcg PO DAILY Raloxifene [Evista] 60 mg PO DAILY Irbesartan [Avapro] 150 mg PO DAILY Atenolol [Tenormin] 50 mg PO DAILY Discharge Medication List Atenolol [Tenormin] 50 mg PO DAILY 05/18/21 [History] Irbesartan [Avapro] 150 mg PO DAILY 05/18/21 [History] Levothyroxine Sodium [Synthroid] 50 mcg PO DAILY 05/18/21 [History] Raloxifene [Evista] 60 mg PO DAILY 05/18/21 [History] Rivaroxaban [Xarelto] 20 mg PO W/SUPPER #90 tab 05/20/21 [Rx] levoFLOXacin 750 mg PO DAILY 5 Days #5 tab 05/20/21 [Rx] Follow up Appointment(s)/Referral(s): Henry Avalos MD [STAFF PHYSICIAN] - 4 Weeks (office will call you with an appt.) Les Lombardo MD [Primary Care Provider] - 05/26/21 3:15 pm Patient Instructions/Handouts: A-fib (Atrial Fibrillation) (DC) Discharge Disposition: HOME SELF-CARE
[2021-05-20] MEDS ORDERED: RIVAROXABAN 20 MG TAB PO SCH (17:30)
== END 2021-05-20 14:13 | disposition home or self-care (01) | DRG 871 ==
LOC: EC 11:37 → 3SCARD 14:03
PROVIDERS: ADMIT Internal Medicine; ATTEND Internal Medicine
DX: A41.9 Sepsis, unspecified organism (principal); J18.9 Pneumonia, unspecified organism; N17.9 Acute kidney failure, unspecified; I48.92 Unspecified atrial flutter; I48.0 Paroxysmal atrial fibrillation; M25.569 Pain in unspecified knee; E78.5 Hyperlipidemia, unspecified; E03.9 Hypothyroidism, unspecified; I27.20 Pulmonary hypertension, unspecified; I34.0 Nonrheumatic mitral (valve) insufficiency; I44.30 Unspecified atrioventricular block; I10 Essential (primary) hypertension; Z20.822 Contact with and (suspected) exposure to COVID-19; Z90.49 Acquired absence of other specified parts of digestive tract; Z91.041 Radiographic dye allergy status; Z79.890 Hormone replacement therapy; Z79.899 Other long term (current) drug therapy; Z79.01 Long term (current) use of anticoagulants
CPT/HCPCS: 36415; 71045; 71046; 80053; 80061; 81001; 83605; 83735; 84145; 84443; 84484; 85025; 85610; 85730; 87040; 87635; 93005; 93306; 99285